=== PATIENT | male | born 1980 | race Native Hawaiian/Other Pacific Islander ===

== ENCOUNTER 2019-03-24 09:07 | Outpatient (CLI) | payer BC | END 2019-03-24 19:08 | disposition home or self-care (01) | LOC: RAD 09:07 | DX: L40.0 Psoriasis vulgaris (principal); L40.4 Guttate psoriasis; L40.59 Other psoriatic arthropathy; M54.5 Low back pain; Z79.899 Other long term (current) drug therapy ==

== ENCOUNTER 2020-09-18 13:29 | Outpatient (CLI) | payer OTHER | END 2020-09-18 21:36 | disposition home or self-care (01) | LOC: RAD 13:29 | PROVIDERS: ATTEND Nurse Practitioner Family | DX: E11.65 Type 2 diabetes mellitus with hyperglycemia (principal); M25.561 Pain in right knee; M25.562 Pain in left knee; M54.5 Low back pain; M79.671 Pain in right foot; M79.672 Pain in left foot ==

== ENCOUNTER 2022-11-24 08:53 | Outpatient (CLI) | payer OTHER | END 2022-11-24 19:12 | disposition home or self-care (01) | LOC: RAD 08:53 | PROVIDERS: ATTEND Nurse Practitioner Family | DX: E11.65 Type 2 diabetes mellitus with hyperglycemia (principal); L40.0 Psoriasis vulgaris; L40.4 Guttate psoriasis; L40.59 Other psoriatic arthropathy; Z79.899 Other long term (current) drug therapy ==